=== PATIENT | male | born 1945 | race American Indian/Alaskan Native ===

== ENCOUNTER 2017-05-25 23:29 | Emergency (ER) | payer OTHER, MEDICARE ==
[2017-05-26 00:16] VITALS: BP 160/61
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
[2017-05-26] MEDS ORDERED: NAPROSYN PO ONE (02:51)
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
== END 2017-05-26 03:55 | disposition home or self-care (01) ==
LOC: ED 23:29
DX: S16.1XXA Strain of muscle, fascia and tendon at neck level, initial encounter (principal); S09.90XA Unspecified injury of head, initial encounter; S39.92XA Unspecified injury of lower back, initial encounter; E11.9 Type 2 diabetes mellitus without complications; V49.49XA Driver injured in collision with other motor vehicles in traffic accident, initial encounter; Y93.89 Activity, other specified; Y92.89 Other specified places as the place of occurrence of the external cause; Y99.8 Other external cause status
CPT/HCPCS: 70450; 72100; 72125